=== PATIENT | male | born 1975 | race Caucasian/White ===

== ENCOUNTER 2017-07-17 01:08 | Emergency (ER) | payer OTHER ==
[2017-07-17] MEDS: TETANUS AND DIPHTHERIA TOX/PF 0.5 ML DISP.SYRIN. VAX IM (02:11)
[2017-07-17] MEDS: AMOXICILLIN 250 MG CAPSULE. PO (02:47)
== END 2017-07-17 02:50 | disposition home or self-care (01) ==
LOC: ER 01:08
DX: S09.93XA Unspecified injury of face, initial encounter (principal); S00.81XA Abrasion of other part of head, initial encounter; F17.210 Nicotine dependence, cigarettes, uncomplicated; W18.09XA Striking against other object with subsequent fall, initial encounter; Y93.89 Activity, other specified; Y99.8 Other external cause status; Y92.89 Other specified places as the place of occurrence of the external cause
CPT/HCPCS: 70450; 70486; 72125; 90471; 90714; 99284-25